=== PATIENT | male | born 1980 | race Caucasian/White ===

== ENCOUNTER 2018-11-28 17:48 | Emergency (ER) | payer BC ==
[~2018-11-28] VITALS: Ht 180.3 cm; Wt 109.8 kg
[2018-11-28 17:52] VITALS: Ht 180.3 cm; Wt 109.8 kg
[2018-11-28 20:09] VITALS: BP 103/81
== END 2018-11-28 20:09 | disposition home or self-care (01) ==
LOC: ED 17:48
DX: S01.81XA Laceration without foreign body of other part of head, initial encounter (principal); W22.8XXA Striking against or struck by other objects, initial encounter; Y93.89 Activity, other specified; Y92.89 Other specified places as the place of occurrence of the external cause; Y99.8 Other external cause status
CPT/HCPCS: 90715